=== PATIENT | female | born 1945 | race Two or more races ===

== ENCOUNTER 2017-03-27 19:03 | Inpatient (IN) | payer BC ==
[2017-03-27 19:26] VITALS: BMI 27.4
[2017-03-27] MEDS ORDERED: SODIUM CHLORIDE 1,000 ML IV STA (20:07)
--- NOTE | 2017-03-27 20:10 | PDOC ---
Attending Attestation - Resident Resident Name: Cecilio Gaspar - ED Attending Attestation I have performed the following: I have examined & evaluated the patient, The case was reviewed & discussed with the resident, I agree w/resident's findings & plan, Exceptions are as noted - Physicial Exam PE: 03/27/17 20:38 Physical Exam General Appearance: Yes: Appropriately Dressed. No: Apparent Distress, Intoxicated HEENT: positive: EOMI, DAVIDSON, Normal ENT Inspection, Normal Voice, TMs Normal, Pharynx Normal. negative: Pale Conjunctivae, Photophobia, Scleral Icterus (R), Scleral Icterus (L) Neck: positive: Trachea midline, Normal Thyroid, Supple. negative: Tender, Rigid, Carotid bruit, Stridor, Lymphadenopathy (R), Lymphadenopathy (L), Thyromegaly Respiratory/Chest: positive: Lungs Clear, Normal Breath Sounds. negative: Chest Tender, Respiratory Distress, Accessory Muscle Use, Labored Respiration, RES, Crackles, Rales, Rhonchi, Stridor, Wheezing, Dullness Cardiovascular: positive: Regular Rhythm, Regular Rate, S1, S2. negative: Edema , JVD, Murmur, Bradycardia, Tachycardia Vascular Pulses: Dorsalis-Pedis (R): 2+, Doralis-Pedis (L): 2+ Gastrointestinal/Abdominal: positive: Normal Bowel Sounds, Flat, Soft. negative : Tender, Organomegaly, Pulsatile Mass, Increased Bowel Sounds, Decreased BS, Distended, Guarding, Rebound, Hernia, Hepatomegaly, Spleenomegaly Lymphatic: negative: Adenopathy, Tenderness Musculoskeletal: positive: Normal Inspection. negative: CVA Tenderness, Decreased Range of Motion Extremity: positive: Normal Capillary Refill, Normal Inspection, Normal Range of Motion, Pelvis Stable. negative: Tender, Pedal Edema, Swelling, Erythema Integumentary: positive: Normal Color, Dry, Warm. negative: Cyanotic, Erythema , Jaundice, Rash Neurologic: positive: business account leader II-XII NML intact, slight slurred speech, confused Alert, Normal Mood/Affect, Motor Strength 5/5. negative: EOM Palsy, Facial Droop, Sensory Deficit - Medical Decision Making 03/27/17 23:27 Pt to be admitted to [facility] fro AMS, UTI <SinCharles cordero - Last Filed: 03/27/17 23:27> - HPI HPI: 03/27/17 23:30 The patient is a 72 year old female with a significant PMH of past TIA, diabetes , HTN, hyperlipidemia, and depression who presents to the emergency department with altered mental status beginning approximately 1 week ago and for evaluation of elevated blood sugar. As per , the patient has been increasingly confused with associated difficulty speaking, being very repetitive with her sentences. The patients reports the patient took Ambien earlier today and has been drinking recently. The patient denies headache , chest pain, shortness of breath, or weakness. Allergies: NKA <Yan Mclain - Last Filed: 03/27/17 23:38> Discharge Disposition - Discharge Dispostion Admit: Yes <Charles Álvarez - Last Filed: 03/27/17 23:27> <Yan Mclain - Last Filed: 03/27/17 23:38> - Diagnosis Altered mental status, UTI (urinary tract infection) - Discharge Dispostion Condition at time of disposition: Stable
[2017-03-27 21:27] LABS: BASO % 0.6 % (0-2.0); EOS % 3.3 % (0-4.5); HEMATOCRIT 35.4 % (32.4-45.2); HEMOGLOBIN 12.2 GM/dL (10.7-15.3); LYMPH % 30.7 % (8-40); MCH 29.5 pg (25.7-33.7); MCHC 34.3 g/dl (32.0-36.0); MEAN PLT VOLUME 8.5 fl (7.5-11.1); MONO % 8.3 % (3.8-10.2); NEUT % 57.1 % (42.8-82.8); PLATELET COUNT 272 K/MM3 (134-434); RBC 4.12 M/mm3 (3.60-5.2); RDW 13.1 % (11.6-15.6); WHITE BLOOD COUNT 9.5 K/mm3 (4.0-10.0)
[2017-03-27 21:50] LABS: URINE APPEARANCE CLEAR; URINE BILIRUBIN NEGATIVE (NEGATIVE); URINE BLOOD 1+ (NEGATIVE); URINE COLOR LTYELLOW; URINE GLUCOSE (UA) 3+ (NEGATIVE); URINE KETONE NEGATIVE (NEGATIVE); URINE LEUK ESTERASE 3+ (NEGATIVE); URINE NITRITE POSITIVE (NEGATIVE); URINE PROTEIN NEGATIVE (NEGATIVE); URINE UROBILINOGEN NEGATIVE mg/dL (0.2-1.0)
[2017-03-27 21:53] LABS: EPI CELLS RARE /HPF (FEW); URINE MUCUS RARE
[2017-03-27 22:00] LABS: COCAINE, UR NEGATIVE ng/ml (CUTOFF=300); METHADONE, UR NEGATIVE ng/ml (CUTOFF=300); OPIATES, URI NEGATIVE ng/ml (CUTOFF=300); PHENCYCLIDINE,URINE NEGATIVE ng/ml (CUTOFF=25); URINE AMPHETAMINES NEGATIVE ng/ml (CUTOFF=500); URINE BARBITURATES NEGATIVE ng/ml (CUTOFF=200); URINE BENZODIAZEPINES NEGATIVE ng/ml (CUTOFF=200)
[2017-03-27 22:01] LABS: ANION GAP 8 (8-16); BLOOD UREA NITROGEN 23 mg/dL (7-18); CALCIUM 7.9 mg/dL (8.5-10.1); CHLORIDE 105 mmol/L (98-107); CO2 28 mmol/L (21-32); CREATININE 1.2 mg/dL (0.55-1.02); GLUCOSE,RANDOM 202 mg/dL (74-106); POTASSIUM 3.1 mmol/L (3.5-5.1); SGOT/AST 58 U/L (15-37); SGPT/ALT 76 U/L (12-78); SODIUM 141 mmol/L (136-145)
[2017-03-27 22:02] LABS: ALCOHOL < 5.0 mg/dl (0-5)
[2017-03-27 22:03] LABS: ALK PHOS 202 U/L (45-117); BILIRUBIN,TOTAL 0.5 mg/dL (0.2-1.0); TOT PROT 6.4 g/dl (6.4-8.2)
[2017-03-27 22:07] LABS: ACETAMINOPHEN < 2.000 ug/ml (10.0-30.0); SALICYLATE < 4.0 mg/dl (0.0-30.0)
[2017-03-27] MEDS ORDERED: CEFTRIAXONE 1 GM/50 ML BAG ONE (23:24)
--- NOTE | 2017-03-27 23:42 | PDOC ---
History of Present Illness - General Chief Complaint: Altered Mental Status Stated Complaint: ALTERED MENTAL STATUS Time Seen by Provider: 03/27/17 19:59 History Source: Family - History of Present Illness Initial Comments: 03/27/17 23:37 72F with pmh of TIA, DM2, HTN, presenting with altered mental status, hyperglycemia in the 350's and suicidal ideation brought with by ems. Given 500cc ns. and family think she may have taken some Ambien, unknown amounts. . 03/27/17 23:40 Past History - Past Medical History Allergies/Adverse Reactions: Allergies Allergy/AdvReac Type Severity Reaction Status Date / Time No Known Allergies Allergy Verified 03/27/17 19:12 Home Medications: Ambulatory Orders Zolpidem Tartrate [Ambien] 10 mg PO BID 03/27/17 COPD: No Diabetes: Yes HTN: Yes Hypercholesterolemia: Yes Psychiatric Problems: Yes (depression and hallucinations, imsomnia) - Suicide/Smoking/Psychosocial Hx Smoking History: Never smoked Have you smoked in the past 12 months: No Information on smoking cessation initiated: No Hx Alcohol Use: No Drug/Substance Use Hx: No Substance Use Type: None Review of Systems - Review of Systems Able to Perform ROS?: No (patient altered. ) *Physical Exam - Vital Signs Last Vital Signs Temp Pulse Resp BP Pulse Ox 98.8 F 70 18 119/60 100 03/27/17 19:13 03/27/17 19:13 03/27/17 19:13 03/27/17 19:13 03/27/17 19:13 - Physical Exam General Appearance: Yes: Disheveled, Moderate Distress HEENT: positive: EOMI, DAVIDSON, Normal ENT Inspection Respiratory/Chest: positive: Lungs Clear, Normal Breath Sounds. negative: Chest Tender, Respiratory Distress Cardiovascular: positive: Regular Rhythm, Regular Rate, S1, S2 Gastrointestinal/Abdominal: positive: Normal Bowel Sounds, Tender (mildly grimacing on palpation), Soft Extremity: positive: Normal Capillary Refill Neurologic: positive: Responsive, Confused, Depressed Affect. negative: Fully Oriented ED Treatment Course - LABORATORY CBC & Chemistry Diagram: 03/27/17 20:59 03/27/17 20:59 - ADDITIONAL ORDERS Additional order review: Laboratory Results 03/27/17 03/27/17 03/27/17 21:39 21:39 20:59 Sodium Potassium Chloride Carbon Dioxide Anion Gap BUN Creatinine Creat Clearance w eGFR Random Glucose Calcium Total Bilirubin AST ALT Alkaline Phosphatase Total Protein Albumin Urine Color Ltyellow Urine Appearance Clear Urine pH 5.0 Ur Specific [place] 1.018 Urine Protein Negative Urine Glucose (UA) 3+ H Urine Ketones Negative Urine Blood 1+ H Urine Nitrite Positive Urine Bilirubin Negative Urine Urobilinogen Negative Ur Leukocyte Esterase 3+ H Urine WBC (Auto) 22 Urine RBC (Auto) 1 Ur Epithelial Cells Rare Urine Mucus Rare Salicylates < 4.0 Opiates Screen Negative Methadone Screen Negative Acetaminophen < 2.000 L Barbiturate Screen Negative Phencyclidine Screen Negative Ur Amphetamines Screen Negative MDMA (Ecstasy) Screen Negative Benzodiazepines Screen Negative Cocaine Screen Negative U Marijuana (THC) Screen Negative Alcohol, Quantitative < 5.0 03/27/17 20:59 Sodium 141 Potassium 3.1 L Chloride 105 Carbon Dioxide 28 Anion Gap 8 BUN 23 H Creatinine 1.2 H Creat Clearance w eGFR 44.41 Random Glucose 202 H Calcium 7.9 L Total Bilirubin 0.5 AST 58 H ALT 76 Alkaline Phosphatase 202 H Total Protein 6.4 Albumin 3.0 L Urine Color Urine Appearance Urine pH Ur Specific [place] Urine Protein Urine Glucose (UA) Urine Ketones Urine Blood Urine Nitrite Urine Bilirubin Urine Urobilinogen Ur Leukocyte Esterase Urine WBC (Auto) Urine RBC (Auto) Ur Epithelial Cells Urine Mucus Salicylates Opiates Screen Methadone Screen Acetaminophen Barbiturate Screen Phencyclidine Screen Ur Amphetamines Screen MDMA (Ecstasy) Screen Benzodiazepines Screen Cocaine Screen U Marijuana (THC) Screen Alcohol, Quantitative 03/27/17 20:59 RBC 4.12 MCV 86.0 MCHC 34.3 RDW 13.1 MPV 8.5 Neutrophils % 57.1 Lymphocytes % 30.7 Monocytes % 8.3 Eosinophils % 3.3 Basophils % 0.6 - RADIOLOGY Radiology Studies Ordered: Category Date Time Status HEAD CT WITHOUT CONTRAST [CT] Stat CT Scan 03/27/17 20:08 Completed - Medications Given in the ED: ED Medications Discontinued Medications Generic Name Dose Route Start Last Admin Trade Name Freq PRN Reason Stop Dose Admin Sodium Chloride 1,000 mls @ 1,000 mls/hr 03/27/17 20:07 03/27/17 20:28 Normal Saline - IV 03/27/17 21:06 1,000 mls/hr ASDIR STA Administration Medical Decision Making - Medical Decision Making 03/27/17 23:49 72F presenting with AMS. basic labs, metabolic vs tox vs neuro. K: 3.1 given KCL EKG normal EKG HEAD CT: negative negative tox UA positive for UTI, Given rocephin. Will admit to hospitalist. Family expressed desire to arrange for accomadation to transport patient to [facility] tomorrow *DC/Admit/Observation/Transfer Diagnosis at time of Disposition: Altered mental status, UTI (urinary tract infection) - Discharge Dispostion Condition at time of disposition: Stable - Referrals - Patient Instructions - Post Discharge Activity
[2017-03-27] MEDS ORDERED: POTASSIUM CHLORIDE ORAL LIQUID 20 MEQ/15 ML PO ONE (23:45)
[2017-03-28] MEDS ORDERED: POTASSIUM CHLORIDE TABS 20 MEQ TABLET.ER (FP) PO ONE (00:41)
--- NOTE | 2017-03-28 02:26 | PN ---
Teaching Attending Note Name of Resident: Jonathon Thompson ATTENDING PHYSICIAN STATEMENT I saw and evaluated the patient. I reviewed the resident's note and discussed the case with the resident. I agree with the resident's findings and plan as documented. HPI is per daughter at bedside SUBJECTIVE: 72yo F wtih PMH DM, HTN and CVA with residual slurred speech presented to ER after suicide attempt. took unknown amount of ambien in attempts to end her life. pt has been progressively depressed over the past month after catching her cheating on her. also her dog 2 weeks ago. pt has been making repetetive threats that she will kill herself. but today was the first time she actually acted on it. she has also made several statements how her life is meaningless and everyone would be happy without her present. also has been phsyically abusive to their pet bird. daughter also states shes been having visual hallucinations seeing her grandfather who 10 years ago. pt is only complaining of urinary urgency. denies CP, SOB, fever, chills, N/V/C/D OBJECTIVE: Last Vital Signs Temp Pulse Resp BP Pulse Ox 98.8 F 70 18 119/60 100 03/27/17 19:13 03/27/17 19:13 03/27/17 19:13 03/27/17 19:13 03/27/17 19:13 General tearful during exam. A&O x2 (self and location), dysarthric speech CV S1 S2 RRR no murmur/rub/gallop Lungs CTA B/L no wheezing/rales/rhonchi Abdomen soft +suprapubic tenderness no distention Extremtieis no pedal edema ASSESSMENT AND PLAN: 72yo F wtih PMH DM, HTN and CVA with residual slurred speech presented to ER after suicide attempt and AMS 1. Acute metabolic encephalopathy- medicine admission. likely multifactorial from ambien overdose and hyperglycemia. started on ceftriaxone in the ER. cont IVF. f/u Cx 2. Suicide attempt- intentional overdose on ambien. likely due to multiple family stressors. will need to re-assess when she is more alert and medication is not in her system. will place on 1:1 observation. psych consult. advised daughter that should not visit while she is hospitalized as may trigger response until evaluated by psych. no real silverware or cords in the room. Utox negative 3. hypokalemia- KCl po 4. MICHEAL- due to dehydration. IVF 5. HTN- will need to verify home medications. currently normotensives 6. CVA- residual dysarthria. confirm home medications 7. DVT ppx- hep sq 8. spoke with daughter, present at bedside in detail regarding plan. agreeable to being treated here at [facility]. explained she will need to be assessed by psych if she is considered threat to herself will need to be involuntary committed to psychiatric unit. she is agreeable to plan. verbalized understanding
--- NOTE | 2017-03-28 03:02 | HP ---
CHIEF COMPLAINT: suicidal PCP: unknown, possibly "Elieser Ashton" in [place] HISTORY OF PRESENT ILLNESS: 72 y/ F w/PMH of CVA, DM, HTN, HLD, depression presents to the ER after suicide attempt. History obtained from family at bedside (daughter, son in law, ) . Pt with slurred speech but according to family this is her usual speech s/p last CVA> Pt took an unknown amount of ambien today in attempted suicide. Pt has been depressed due to finding out her was cheating on her approx 1 month ago and since then has had worsening depression. She has been talking about killing herself since then but this is the first time she acted on it. She also has been having violent outburst against pet bird and during this time. Pt has been having auditory and visual hallucinations and has been seeing her father and according to pt's daughter the pt has been saying that she will be "joining him". Also according to daughter pt has been suffering from insomnia that was not improved with ambien. Pt endorses L sided BROWN located behind L ear. Pt also has had approx 30 pound weight loss over the past month due to decrease in appetite. Family says she does not drink alcohol or do drugs. Pt denies CP, SOB, N/V/F/C, abd pain, diarrhea, constipation, extremity swelling. ER course was notable for: (1) Ceftriaxone, NS, KCl (2) Head CT, CXR (3) Recent Travel: denies PAST MEDICAL HISTORY:TIA x2, DM, HTN, HLD, depression PAST SURGICAL HISTORY: cholecystectomy, breast reduction Social History: Smoking: never Alcohol: denies Drugs: denies Family History: Mother:() alzheimers. Father: () DM, Prostate ca Allergies No Known Allergies Allergy (Verified 03/27/17 19:12) HOME MEDICATIONS: Home Medications Medication Instructions Recorded Zolpidem Tartrate [Ambien] 10 mg PO BID 03/27/17 REVIEW OF SYSTEMS CONSTITUTIONAL: +weight loss, loss of appetite. Absent: fever, chills CARDIOVASCULAR: Absent: chest pain, peripheral edema RESPIRATORY: Absent: cough, shortness of breath GASTROINTESTINAL: Absent: abdominal pain, nausea, vomiting, diarrhea, constipation GENITOURINARY: Absent: dysuria NEUROLOGIC: +BROWN, mental status change PSYCHIATRIC: +suicidal ideation, A/V hallucinations PHYSICAL EXAMINATION Vital Signs - 24 hr 03/27/17 03/28/17 19:13 02:29 Temperature 98.8 F 98.6 F Pulse Rate 70 Pulse Rate [ 76 Radial] Respiratory 18 18 Rate Blood Pressure 119/60 Blood Pressure 130/72 [Arm] O2 Sat by Pulse 100 96 Oximetry (%) GENERAL: Lethargic, in no acute respiratory distress. AAOx3 (person, place, time by president but cannot recall month or year) HEAD: Normal with no signs of trauma. EYES: Pupils equal, round and reactive to light EARS, NOSE, THROAT: Ears normal, nares patent LUNGS: Breath sounds equal, clear to auscultation bilaterally. No wheezes, and no crackles. No accessory muscle use. HEART: Regular rate and rhythm, normal S1 and S2 without murmur ABDOMEN: Soft, nontender, not distended, normoactive bowel sounds, no guarding, no rebound, no masses. UPPER EXTREMITIES: 2+ pulses, warm, well-perfused. No peripheral edema. LOWER EXTREMITIES: 2+ pulses, warm, well-perfused. No peripheral edema. NEUROLOGICAL: Lethargic. B/L UE and LE and facial sensation to light touch intact. PSYCHIATRIC: Lethargic SKIN: Warm, dry Laboratory Results - last 24 hr 03/27/17 03/27/17 03/27/17 20:59 20:59 20:59 WBC 9.5 RBC 4.12 Hgb 12.2 Hct 35.4 MCV 86.0 MCH 29.5 MCHC 34.3 RDW 13.1 Plt Count 272 MPV 8.5 Neutrophils % 57.1 Lymphocytes % 30.7 Monocytes % 8.3 Eosinophils % 3.3 Basophils % 0.6 Sodium 141 Potassium 3.1 L Chloride 105 Carbon Dioxide 28 Anion Gap 8 BUN 23 H Creatinine 1.2 H Creat Clearance w eGFR 44.41 Random Glucose 202 H Calcium 7.9 L Total Bilirubin 0.5 AST 58 H ALT 76 Alkaline Phosphatase 202 H Total Protein 6.4 Albumin 3.0 L Urine Color Urine Appearance Urine pH Ur Specific [place] Urine Protein Urine Glucose (UA) Urine Ketones Urine Blood Urine Nitrite Urine Bilirubin Urine Urobilinogen Ur Leukocyte Esterase Urine WBC (Auto) Urine RBC (Auto) Ur Epithelial Cells Urine Mucus Salicylates < 4.0 Opiates Screen Methadone Screen Acetaminophen < 2.000 L Barbiturate Screen Phencyclidine Screen Ur Amphetamines Screen MDMA (Ecstasy) Screen Benzodiazepines Screen Cocaine Screen U Marijuana (THC) Screen Alcohol, Quantitative < 5.0 03/27/17 03/27/17 21:39 21:39 WBC RBC Hgb Hct MCV MCH MCHC RDW Plt Count MPV Neutrophils % Lymphocytes % Monocytes % Eosinophils % Basophils % Sodium Potassium Chloride Carbon Dioxide Anion Gap BUN Creatinine Creat Clearance w eGFR Random Glucose Calcium Total Bilirubin AST ALT Alkaline Phosphatase Total Protein Albumin Urine Color Ltyellow Urine Appearance Clear Urine pH 5.0 Ur Specific [place] 1.018 Urine Protein Negative Urine Glucose (UA) 3+ H Urine Ketones Negative Urine Blood 1+ H Urine Nitrite Positive Urine Bilirubin Negative Urine Urobilinogen Negative Ur Leukocyte Esterase 3+ H Urine WBC (Auto) 22 Urine RBC (Auto) 1 Ur Epithelial Cells Rare Urine Mucus Rare Salicylates Opiates Screen Negative Methadone Screen Negative Acetaminophen Barbiturate Screen Negative Phencyclidine Screen Negative Ur Amphetamines Screen Negative MDMA (Ecstasy) Screen Negative Benzodiazepines Screen Negative Cocaine Screen Negative U Marijuana (THC) Screen Negative Alcohol, Quantitative Imaging: Head CT: IMPRESSION: No CT evidence of acute intracranial pathology. Chronic left parietal cortical infarct. CXR: NAP noted ASSESSMENT/PLAN: 72 y/ F w/PMH of TIA x2, DM, HTN, HLD, depression presents to the ER after suicide attempt. Also found to have UTI. -AMS secondary to drug overdose w/superimposed UTI and suicidal ideation -1:1 observation, no silverware -psych consult -c/w ceftriaxone -f/u BCx, UCx -Head CT negative, utox negative -MICHEAL secondary to decreased PO intake/dehydration -NS @ 125 ml/hr -Monitor BUN/Cr -may be secondary to drug overdose, continue to monitor -DM -ISS, BGMs ACHS -DVT ppx -Heparin 5000 units sq q8h -FEN -NS @ 125 ml/hr -Hypokalemia, repleted in ER, monitor lytes -Diabetic diet -Dispo: Admit to m/s Visit type - Emergency Visit Emergency Visit: Yes ED Registration Date: 03/27/17 Care time: The patient presented to the Emergency Department on the above date and was hospitalized for further evaluation of their emergent condition. - New Patient This patient is new to me today: Yes Date on this admission: 03/28/17 - Critical Care Critical Care patient: No
[2017-03-28] MEDS ORDERED: SODIUM CHLORIDE 1,000 ML IV SCH (03:15)
[2017-03-28] MEDS: HEPARIN NA (PORCINE) 5,000 UNITS/ML 1ML VIAL SQ SCH ×2 (06:17→15:35)
[2017-03-28] MEDS ORDERED: HEPARIN NA (PORCINE) 5,000 UNITS/ML 1ML VIAL ONE (06:18)
[2017-03-28] MEDS ORDERED: INSULIN SLIDING SCALE (NOVOLOG) 1 VIAL SQ SCH (07:00)
[2017-03-28 08:46] LABS: INR 1.04 (0.82-1.09); PROTHROMBIN TIME (PATIENT) 11.7 SEC (9.98-11.88)
[2017-03-28 08:48] LABS: ACTIVATED PTT 32.3 SECONDS (26.9-34.4)
[2017-03-28 08:53] LABS: BASO % 0.7 % (0-2.0); EOS % 3.9 % (0-4.5); HEMATOCRIT 35.8 % (32.4-45.2); HEMOGLOBIN 11.9 GM/dL (10.7-15.3); LYMPH % 33.7 % (8-40); MCH 28.5 pg (25.7-33.7); MCHC 33.2 g/dl (32.0-36.0); MEAN PLT VOLUME 8.6 fl (7.5-11.1); MONO % 7.9 % (3.8-10.2); NEUT % 53.8 % (42.8-82.8); PLATELET COUNT 262 K/MM3 (134-434); RBC 4.16 M/mm3 (3.60-5.2); RDW 13.2 % (11.6-15.6); WHITE BLOOD COUNT 9.1 K/mm3 (4.0-10.0)
[2017-03-28 09:04] LABS: CALCIUM 8.6 mg/dL (8.5-10.1); CHLORIDE 106 mmol/L (98-107); POTASSIUM 3.6 mmol/L (3.5-5.1); SODIUM 142 mmol/L (136-145)
--- NOTE | 2017-03-28 09:09 | EKG ---
Test Reason : Blood Pressure : / mmHG Vent. Rate : 084 BPM Atrial Rate : 084 BPM P-R Int : 148 ms QRS Dur : 070 ms QT Int : 378 ms P-R-T Axes : 072 075 027 degrees QTc Int : 446 ms NORMAL SINUS RHYTHM NONSPECIFIC T WAVE ABNORMALITY ABNORMAL ECG NO PREVIOUS ECGS AVAILABLE Confirmed by SURINDER THORNTON MD ([id number]) on 03/28/2017 9:09:32 AM Referred By: Confirmed By:SURINDER THORNTON MD
[2017-03-28 09:10] LABS: ALBUMIN 3.2 g/dl (3.4-5.0); ALK PHOS 208 U/L (45-117); ANION GAP 11 (8-16); BILIRUBIN,TOTAL 0.7 mg/dL (0.2-1.0); BLOOD UREA NITROGEN 16 mg/dL (7-18); CO2 25 mmol/L (21-32); GLUCOSE,RANDOM 112 mg/dL (74-106); MAGNESIUM 2.1 mg/dL (1.8-2.4); PHOSPHOROUS 2.9 mg/dL (2.5-4.9); SGOT/AST 67 U/L (15-37); SGPT/ALT 81 U/L (12-78); TOT PROT 6.7 g/dl (6.4-8.2)
[2017-03-28] MEDS ORDERED: CEFTRIAXONE 1 G/50 ML PREMIX 50 ML IVPB SCH (10:00)
[2017-03-28 12:37] VITALS: BP 134/77; PULSE 77; TEMP 98.3
--- NOTE | 2017-03-28 13:49 | CON.PSY ---
Psychiatry Consult Chief Complaint: 72 year old female seen for psych eval for ? Ambien overdose. patient admitted to ER with AMS. patient rep[orts that she jhas only taken 2 ambiens because she has troubl;e sleeping and been upset with Hb, Spoke to patients Daughter as well. Symptoms: reports: Anxiety - Previous Psychiatric Treatment Outpatient: Less than 6 mos ago Inpatient: None - Previous Substance Abuse Treatment Outpatient: None Inpatient: None - Reason for Previous Treatment Reason for Previous Treatment: Major Depression - Current Medications Current Medications: Active Medications Heparin Sodium (Porcine) (Heparin -) 5,000 unit SQ TID [facility] Last Admin: 03/28/17 06:17 Dose: 5,000 unit Sodium Chloride (Normal Saline -) 1,000 mls @ 125 mls/hr IV ASDIR [facility] Last Admin: 03/28/17 05:15 Dose: 125 mls/hr CEFTRIAXONE 1 G/50 ML PREMIX (Ceftriaxone 1 Gm-D5w Bag) 50 mls @ 100 mls/hr IVPB DAILY [facility] Last Admin: 03/28/17 12:50 Dose: 100 mls/hr Insulin Aspart (Novolog Vial Sliding Scale -) 1 vial SQ ACHS [facility] PRN Reason: Protocol - Allergies Allergies: Allergies Allergy/AdvReac Type Severity Reaction Status Date / Time No Known Allergies Allergy Verified 03/27/17 19:12 - Current Living Status Usual Living Arrangement: With Spouse - Current Mental Status Evaluation Appearance: Well Groomed Attitude: Cooperative - Affect Affect: Full Range Appropriateness: Appropriate to Content - Mood Mood: Euthymic - Speech/Language Expressive: Coherent - Psychomotor Activity Psychomotor Activity: Normal - Thought Process Thought Process: Intact - Thought Content Hallucinations: Absent Delusions: Absent - Self Perception Self Perception: No Impairment - Cognition Attention: Alert Orientation: Time Memory, Short Term: 2/3 Memory, Remote with Promptin/3 - Concentration Serial Sevens Intact: No Simple Calculations Intact: No - Abstraction Proverb Interpretation: Intact Judgement: Minimally Impaired - Insight Insight: Intact - Impulse Control Impulse Control: Minimally Impaired - Suicidal Ideation Suicidal Ideation: No - Homicidal Ideation Homicidal Ideation: No Assessment/Plan 1) Patients mental status has cleared, no evidence4 of any AMS, 2) patient is not suicidal at this time, 3) Patient can be discharged home in care of Family. 4) Continue with Cymbalta 30 pop od.
--- NOTE | 2017-03-28 13:55 | PN ---
Progress Note (short form) - Note Progress Note: D/C Delores note,
--- NOTE | 2017-03-28 15:29 | DS ---
Physical Exam: SUBJECTIVE: Patient seen and examined. She denies suicidal ideations, daughter and at bedside, she wants to go home OBJECTIVE: Vital Signs Period Temp Pulse Resp BP Sys/Moore Pulse Ox Last 24 Hr 98.3 F-98.8 F 70-77 18-18 119-134/60-77 96-100 PE Neuro: alert, awake, cn 2-12 intact Pulm: CTAB CV: s1 s2 rrr no mrg Abd: s nt nd + bs Ext: warm, no le edema Laboratory Results - last 24 hr 03/27/17 03/27/17 03/28/17 21:39 21:39 08:22 WBC 9.1 RBC 4.16 Hgb 11.9 Hct 35.8 MCV 86.0 MCH 28.5 MCHC 33.2 RDW 13.2 Plt Count 262 MPV 8.6 Neutrophils % 53.8 Lymphocytes % 33.7 Monocytes % 7.9 Eosinophils % 3.9 Basophils % 0.7 PT with INR INR PTT (Actin FS) Sodium Potassium Chloride Carbon Dioxide Anion Gap BUN Creatinine Creat Clearance w eGFR Random Glucose Calcium Phosphorus Magnesium Total Bilirubin AST ALT Alkaline Phosphatase Total Protein Albumin Urine Color Ltyellow Urine Appearance Clear Urine pH 5.0 Ur Specific [place] 1.018 Urine Protein Negative Urine Glucose (UA) 3+ H Urine Ketones Negative Urine Blood 1+ H Urine Nitrite Positive Urine Bilirubin Negative Urine Urobilinogen Negative Ur Leukocyte Esterase 3+ H Urine WBC (Auto) 22 Urine RBC (Auto) 1 Ur Epithelial Cells Rare Urine Mucus Rare Salicylates Opiates Screen Negative Methadone Screen Negative Acetaminophen Barbiturate Screen Negative Phencyclidine Screen Negative Ur Amphetamines Screen Negative MDMA (Ecstasy) Screen Negative Benzodiazepines Screen Negative Cocaine Screen Negative U Marijuana (THC) Screen Negative Alcohol, Quantitative 03/28/17 03/28/17 03/28/17 08:22 08:22 12:55 WBC RBC Hgb Hct MCV MCH MCHC RDW Plt Count MPV Neutrophils % Lymphocytes % Monocytes % Eosinophils % Basophils % PT with INR 11.70 INR 1.04 PTT (Actin FS) 32.3 Sodium 142 Potassium 3.6 Chloride 106 Carbon Dioxide 25 Anion Gap 11 BUN 16 Creatinine 1.0 Creat Clearance w eGFR 54.81 Random Glucose 112 H 260 H Calcium 8.6 Phosphorus 2.9 Magnesium 2.1 Total Bilirubin 0.7 D AST 67 H ALT 81 H Alkaline Phosphatase 208 H Total Protein 6.7 Albumin 3.2 L Urine Color Urine Appearance Urine pH Ur Specific [place] Urine Protein Urine Glucose (UA) Urine Ketones Urine Blood Urine Nitrite Urine Bilirubin Urine Urobilinogen Ur Leukocyte Esterase Urine WBC (Auto) Urine RBC (Auto) Ur Epithelial Cells Urine Mucus Salicylates Opiates Screen Methadone Screen Acetaminophen Barbiturate Screen Phencyclidine Screen Ur Amphetamines Screen MDMA (Ecstasy) Screen Benzodiazepines Screen Cocaine Screen U Marijuana (THC) Screen Alcohol, Quantitative HOSPITAL COURSE: Date of Admission:03/27/17 Date of Discharge: 03/28/17 Minutes to complete discharge: 38 Discharge Summary Reason For Visit: UTI/AMS Current Active Problems Altered mental status (Acute) UTI (urinary tract infection) (Acute) Hospital Course: Initial Hospital Course: Briefly, this 72 year old female w/PMH of CVA, DM, HTN, HLD, depression presented to the ER after suicide attempt. Per family at bedside (daughter, son in law, ). Pt with slurred speech but according to family this is her usual speech s/p last CVA> Pt took an unknown amount of ambien. Pt has been depressed due to finding out her was cheating on her ~ 1 month ago and since has been depressed. She talked about killing herself since, but this is the first time she acted on it. Pt has been having auditory and visual hallucinations and has been seeing her father and according to pt's daughter the pt has been saying that she will be "joining him". Also daughter reported pt suffering from insomnia; not improved with ambien. Pt also has had approx 30 pound weight loss over the past month due to decrease in appetite. Patient was seen by psych, per eval mental status cleared no evidence of AMS nor suicidal ideations 1:1 discontinued Home with family Stop ambien Treat UTI with levaquin 500mg x5 days PCP follow up as outpt Discussed above with daughter and at bedside tila pierce [phone] Condition: Stable - Instructions Diet, Activity, Other Instructions: Please return to the ED for any new, persistent, or worsening symptoms. Follow up with your PCP in 1 week Take antibiotics as directed and until completed Disposition: HOME - Home Medications Comprehensive Discharge Medication List: Ambulatory Orders levoFLOXacin [Levaquin -] 500 mg PO DAILY #5 tablet 03/28/17 This patient is new to me today: Yes Date on this admission: 03/28/17 Emergency Visit: Yes ED Registration Date: 03/27/17 Care time: The patient presented to the Emergency Department on the above date and was hospitalized for further evaluation of their emergent condition. Critical Care patient: No - Discharge Referral Referred to [facility] Med P.C.: No
[2017-03-28] MEDS ORDERED: INSULIN (NOVOLOG) ASPART 100 UNITS/ML 10ML VIAL ONE ×2 (15:36→15:39)
== END 2017-03-28 18:00 | disposition home or self-care (01) | DRG 917 ==
LOC: JER 19:03 → JERBED 23:28 → UNDOADMIN 23:54 → JERBED 23:54
PROVIDERS: ADMIT Internal Medicine; ATTEND Nurse Practitioner Acute Care
DX: T42.6X2A Poisoning by other antiepileptic and sedative-hypnotic drugs, intentional self-harm, initial encounter (principal); G93.41 Metabolic encephalopathy; N39.0 Urinary tract infection, site not specified; N17.9 Acute kidney failure, unspecified; Y92.89 Other specified places as the place of occurrence of the external cause; R41.82 Altered mental status, unspecified; I10 Essential (primary) hypertension; E78.5 Hyperlipidemia, unspecified; Z86.73 Personal history of transient ischemic attack (TIA), and cerebral infarction without residual deficits; E87.6 Hypokalemia; E86.0 Dehydration
CPT/HCPCS: 36415; 70450-TC; 71045-TC-FY; 80053; 80307; 81003; 81015; 82947; 83735; 84100; 85025; 85610; 85730; 87040; 93005; 93010; 99285-25; J1644

== ENCOUNTER 2018-10-21 09:54 | Inpatient (IN) | payer BC ==
[2018-10-21 11:07] LABS: BASO % 0.5 % (0-2.0); HEMATOCRIT 35.5 % (32.4-45.2); LYMPH % 11.3 % (8-40); MCH 29.3 pg (25.7-33.7); MCHC 33.8 g/dl (32.0-36.0); MEAN CELL VOLUME 86.9 fl (80-96); MEAN PLT VOLUME 8.2 fl (7.5-11.1); MONO % 4.8 % (3.8-10.2); NEUT % 82.4 % (42.8-82.8); PLATELET COUNT 230 K/MM3 (134-434); RBC 4.09 M/mm3 (3.60-5.2); RDW 12.8 % (11.6-15.6); WHITE BLOOD COUNT 13.4 K/mm3 (4.0-10.0)
--- NOTE | 2018-10-21 11:09 | EKG ---
Test Reason : Blood Pressure : / mmHG Vent. Rate : 092 BPM Atrial Rate : 092 BPM P-R Int : 176 ms QRS Dur : 076 ms QT Int : 320 ms P-R-T Axes : 080 062 056 degrees QTc Int : 395 ms NORMAL SINUS RHYTHM NONSPECIFIC T WAVE ABNORMALITY ABNORMAL ECG WHEN COMPARED WITH ECG OF 27-MAR-2017 19:26, QT HAS SHORTENED Confirmed by YASIR DESIR, KSENIA ([id number]) on 10/21/2018 11:09:25 AM Referred By: Confirmed By:KSENIA COOLEY MD
[2018-10-21 11:38] LABS: ALBUMIN 3.9 g/dl (3.4-5.0); BILIRUBIN,TOTAL 0.6 mg/dL (0.2-1); BLOOD UREA NITROGEN 18.2 mg/dL (7-18); CALCIUM 9.5 mg/dL (8.5-10.1); CREATININE 1.1 mg/dL (0.55-1.3); POTASSIUM 3.9 mmol/L (3.5-5.1); TOT PROT 7.5 g/dl (6.4-8.2)
[2018-10-21] MEDS ORDERED: ACETAMINOPHEN 1000 MG/100 ML VIAL (NON FORMULARY) IVPB ONE (12:22)
[2018-10-21] MEDS ORDERED: ONDANSETRON 4 MG/2 ML VIAL IVPUSH ONE (12:22)
[2018-10-21 12:31] LABS: PROTHROMBIN TIME (PATIENT) 11.3 SEC (9.7-13.0)
[2018-10-21 12:32] LABS: INR 0.96 (0.83-1.09)
[2018-10-21] MEDS ORDERED: ACETAMINOPHEN INJECTION 100 ML IVPB ONE (12:52)
[2018-10-21] MEDS ORDERED: ONDANSETRON 4 MG/2 ML VIAL ONE (12:52)
--- NOTE | 2018-10-21 13:51 | PDOC ---
Documentation entered by Lenny Navarro SCRIBE, acting as scribe for Tameka Bradford MD. Tameka Bradford MD: This documentation has been prepared by the Ramon montana Daniel, SCRIBE, under my direction and personally reviewed by me in its entirety. I confirm that the documentation accurately reflects all work, treatment, procedures, and medical decision making performed by me. History of Present Illness - General Chief Complaint: Injury Stated Complaint: FALL' Time Seen by Provider: 10/21/18 10:11 History Source: Patient, Spouse Exam Limitations: No Limitations - History of Present Illness Initial Comments: 10/21/18 10:57 The patient is a 73 year old female with a past medical history of TIA, diabetes , HTN, and HLD here today for evaluation of head hematoma s/p 2 falls from bed. The patients reports that the patient fell around 3:30 AM this morning and he helped her back into bed. He states that he found her on the floor again a few hours later and helped her back into bed. He reports that the bed is approximately 2 feet off the ground and that the bedroom floor is tile. Patient vomited while in the ER. Allergies: NKA PCP: Dr. Elieser Ashton Past History - Past Medical History Allergies/Adverse Reactions: Allergies Allergy/AdvReac Type Severity Reaction Status Date / Time No Known Allergies Allergy Verified 03/27/17 19:12 Home Medications: Ambulatory Orders levoFLOXacin [Levaquin -] 500 mg PO DAILY #5 tablet 03/28/17 Amlodipine Besylate 10 mg PO DAILY 10/22/18 Atorvastatin Calcium 40 mg PO DAILY 10/22/18 Carvedilol 25 mg PO DAILY 10/22/18 Escitalopram Oxalate [Lexapro -] 10 mg PO DAILY 10/22/18 Metformin HCl [Glucophage] 1,000 mg PO BID 10/22/18 Mirtazapine 15 mg PO DAILY 10/22/18 Sitagliptin Phosphate [Januvia] 100 mg PO DAILY 10/22/18 Valsartan/Hydrochlorothiazide [Valsartan-Hctz 160-12.5 mg Tab] 1 each PO DAILY 10/22/18 Zolpidem Tartrate [Zolpidem Tartrate ER] 12.5 mg PO HS 10/22/18 CVA: Yes COPD: No Diabetes: Yes HTN: Yes Hypercholesterolemia: Yes Psychiatric Problems: Yes (depression and hallucinations, imsomnia) - Suicide/Smoking/Psychosocial Hx Smoking History: Never smoked Have you smoked in the past 12 months: No Information on smoking cessation initiated: No Hx Alcohol Use: No Drug/Substance Use Hx: No Substance Use Type: None Review of Systems - Review of Systems Able to Perform ROS?: No (limited) *Physical Exam - Vital Signs Last Vital Signs Temp Pulse Resp BP Pulse Ox 98.3 F 92 H 18 161/91 97 10/21/18 10:02 10/21/18 10:02 10/21/18 10:02 10/21/18 10:02 10/21/18 10:02 - Physical Exam Comments: 10/21/18 10:57 GENERAL: +patient vomited while in ER. The patient is in no acute distress. HEAD: +large right frontal hematome. EYES: PERRLA, EOMI, sclera anicteric, conjunctiva clear. ENT: Ears normal, nares patent, oropharynx clear without exudates. Moist mucous membranes. NECK: Normal range of motion, supple without lymphadenopathy, JVD, or masses. LUNGS: Breath sounds equal, clear to auscultation bilaterally. No wheezes, and no crackles. HEART:Regular rate and rhythm, normal S1 and S2 without murmur, rub or gallop. ABDOMEN: Soft, nontender, normoactive bowel sounds. No guarding, no rebound. No masses palpable. EXTREMITIES: Normal range of motion, no edema. No clubbing or cyanosis. No erythema, or tenderness. NEUROLOGICAL: Cranial nerves II through XII grossly intact. Normal speech. No focal neurological deficits. MUSCULOSKELETAL: Back non-tender to palpation, no CVA tenderness SKIN: Warm, Dry, normal turgor, no rashes or lesions noted. ED Treatment Course - LABORATORY CBC & Chemistry Diagram: 10/22/18 06:15 10/22/18 06:15 - RADIOLOGY Radiology Studies Ordered: Category Date Time Status CERVICAL SPINE CT W/O CONTR [CT] Stat CT Scan 10/21/18 10:[address] W/O CONTRAST [CT] Stat CT Scan 10/21/18 10:[address] WITHOUT CONTRAST [CT] Stat CT Scan 10/21/18 10:32 Ordered CHEST X-RAY PORTABLE* [RAD] Stat Radiology 10/21/18 10:32 Ordered Medical Decision Making - Medical Decision Making 10/21/18 10:35 73 yo F presenting via EMS s/p head trauma Pt reports that she fell out of bed TWICE The first time was at approximately 3am She was put back in bed by the man at her bedside She then was found by him this morning on the floor HE was unable to pick her up and therefore called EMS The bed is approximately 2 feet off the ground Pt fell onto tile carlos Unclear if she had a loss of consciousness Pt is awake and answers questions A&O x3 Pt is vomiting Pt is slow to respond to questioning Call placed to pc maintenance technician to take this patient I am told they do not have an available table to take her I have expressed that this patient has visible head trauma and is vomiting CT will be available in 15 minutes 10/21/18 11:34 Pt was brought to CT by nurse CT still not performed 10/21/18 12:17 Laboratory Tests 10/21/18 10/21/18 10/21/18 10:45 10:45 10:45 WBC 13.4 H Hgb 12.0 Hct 35.5 Plt Count 230 Sodium 138 Potassium 3.9 Chloride 101 Carbon Dioxide 25 BUN 18.2 H Creatinine 1.1 Random Glucose 328 H Creatine Kinase 207 H Creatine Kinase Index 1.3 CK-MB (CK-2) 2.7 Troponin I < 0.02 CT performed 10/21/18 12:[address] reveals no ICH, pt haS a LARGE hematoma overlying frontal bone 10/21/18 12:49 Still awaiting official read of CT scans 10/21/18 13:41 Call placed to patient's pharmacy to confirm she is NOT On anticoagulants [facility] [address] 81 mg daily Amlodipine 10mg daily Zolpidem 12.5 Carvedilol 25 BID Naproxen 500mg BID headaches 10/21/18 14:01 EKG: NSR rate of 92 bpm, axis nml, intervals nml, no st elevation or depression , t waves upright *DC/Admit/Observation/Transfer Diagnosis at time of Disposition: Fall from bed Qualifiers: Encounter type: initial encounter Qualified Code(s): W06.XXXA - Fall from bed, initial encounter Scalp hematoma Qualifiers: Encounter type: initial encounter Qualified Code(s): S00.03XA - Contusion of scalp, initial encounter - Discharge Dispostion Condition at time of disposition: Stable Decision to Admit order: Yes - Referrals - Patient Instructions - Post Discharge Activity
--- NOTE | 2018-10-21 16:36 | HP ---
Admitting History and Physical - Primary Care Physician PCP: Laverne Cruz - Admission History of Present Illness: 73 year old female with a past medical history of TIA, diabetes, HTN, and HLD here today for evaluation of head hematoma s/p 2 falls from bed. The patients reports that the patient fell around 3:30 AM this morning and he helped her back into bed. He states that he found her on the floor again a few hours later and helped her back into bed. He reports that the bed is approximately 2 feet off the ground and that the bedroom floor is tile. Patient vomited while in the ER. - Smoking History Smoking history: Never smoked Have you smoked in the past 12 months: No - Alcohol/Substance Use Hx Alcohol Use: No Home Medications - Allergies Allergies/Adverse Reactions: Allergies Allergy/AdvReac Type Severity Reaction Status Date / Time No Known Allergies Allergy Verified 03/27/17 19:12 - Home Medications Home Medications: Ambulatory Orders levoFLOXacin [Levaquin -] 500 mg PO DAILY #5 tablet 03/28/17 Amlodipine Besylate 10 mg PO DAILY 10/22/18 Atorvastatin Calcium 40 mg PO DAILY 10/22/18 Carvedilol 25 mg PO DAILY 10/22/18 Escitalopram Oxalate [Lexapro -] 10 mg PO DAILY 10/22/18 Metformin HCl [Glucophage] 1,000 mg PO BID 10/22/18 Mirtazapine 15 mg PO DAILY 10/22/18 Sitagliptin Phosphate [Januvia] 100 mg PO DAILY 10/22/18 Valsartan/Hydrochlorothiazide [Valsartan-Hctz 160-12.5 mg Tab] 1 each PO DAILY 10/22/18 Zolpidem Tartrate [Zolpidem Tartrate ER] 12.5 mg PO HS 10/22/18 Physical Examination Vital Signs: Vital Signs Temperature 98.3 F 10/21/18 14:29 Pulse Rate 90 10/21/18 14:29 Respiratory Rate 18 10/21/18 14:29 Blood Pressure 145/78 10/21/18 14:29 O2 Sat by Pulse Oximetry (%) 96 10/21/18 14:29 HENT: Yes: Other (bruise R eye /forehead hematoma) Cardiovascular: Yes: Regular Rate and Rhythm Respiratory: Yes: CTA Bilaterally Gastrointestinal: Yes: Normal Bowel Sounds Extremities: Yes: WNL Neurological: Yes: Alert, Oriented Labs: CBC, BMP 10/21/18 10:45 10/21/18 10:45 Imaging - Results Cat Scan: Report Reviewed Problem List - Problems (1) Fall from bed Assessment/Plan: PT eval neuro consult Code(s): W06.XXXA - FALL FROM BED, INITIAL ENCOUNTER Qualifiers: Encounter type: initial encounter Qualified Code(s): W06.XXXA - Fall from bed, initial encounter (2) Scalp hematoma Code(s): S00.03XA - CONTUSION OF SCALP, INITIAL ENCOUNTER Qualifiers: Encounter type: initial encounter Qualified Code(s): S00.03XA - Contusion of scalp, initial encounter (3) UTI (urinary tract infection) Assessment/Plan: on po abx Code(s): N39.0 - URINARY TRACT INFECTION, SITE NOT SPECIFIED (4) Altered mental status Assessment/Plan: alert and oriented Code(s): R41.82 - ALTERED MENTAL STATUS, UNSPECIFIED (5) Diabetes Assessment/Plan: bgms continue home meds waiting for list Code(s): E11.9 - TYPE 2 DIABETES MELLITUS WITHOUT COMPLICATIONS Assessment/Plan Laboratory Tests 10/21/18 10/21/18 10/21/18 10:45 10:45 10:45 WBC 13.4 H RBC 4.09 Hgb 12.0 Hct 35.5 MCV 86.9 MCH 29.3 MCHC 33.8 RDW 12.8 Plt Count 230 MPV 8.2 Absolute Neuts (auto) 11.1 H Neutrophils % 82.4 D Lymphocytes % 11.3 D Monocytes % 4.8 Eosinophils % 1.0 Basophils % 0.5 Nucleated RBC % 0 PT with INR INR Sodium 138 Potassium 3.9 Chloride 101 Carbon Dioxide 25 Anion Gap 11 BUN 18.2 H Creatinine 1.1 Est GFR (CKD-EPI)AfAm 58.50 Est GFR (CKD-EPI)NonAf 50.47 Random Glucose 328 H Calcium 9.5 Total Bilirubin 0.6 AST 33 ALT 28 Alkaline Phosphatase 129 H Creatine Kinase 207 H Creatine Kinase Index 1.3 CK-MB (CK-2) 2.7 Troponin I < 0.02 Total Protein 7.5 Albumin 3.9 10/21/18 10:45 WBC RBC Hgb Hct MCV MCH MCHC RDW Plt Count MPV Absolute Neuts (auto) Neutrophils % Lymphocytes % Monocytes % Eosinophils % Basophils % Nucleated RBC % PT with INR 11.30 INR 0.96 Sodium Potassium Chloride Carbon Dioxide Anion Gap BUN Creatinine Est GFR (CKD-EPI)AfAm Est GFR (CKD-EPI)NonAf Random Glucose Calcium Total Bilirubin AST ALT Alkaline Phosphatase Creatine Kinase Creatine Kinase Index CK-MB (CK-2) Troponin I Total Protein Albumin Active Medications Generic Name Dose Route Start Last Admin Trade Name Freq PRN Reason Stop Dose Admin Amlodipine Besylate 10 mg 10/23/18 10:00 Norvasc - PO DAILY [facility] Amoxicillin/Clavulanate Potassium 1 tab 10/23/18 08:00 Augmentin - 875mg Tablet PO BID@0800,1730 [facility] Atorvastatin Calcium 40 mg 10/22/18 22:00 Lipitor - PO HS [facility] Carvedilol 25 mg 10/22/18 18:00 Coreg - PO DAILY [facility] Divalproex Sodium 250 mg 10/22/18 22:00 Depakote *Er* - PO HS [facility] Escitalopram Oxalate 10 mg 10/23/18 10:00 Lexapro - PO DAILY [facility] Hydrochlorothiazide 12.5 mg 10/23/18 10:00 Hctz - PO DAILY [facility] Metformin HCl 1,000 mg 10/23/18 07:00 Glucophage - PO BIDI [facility] Mirtazapine 15 mg 10/22/18 22:00 Remeron - PO HS [facility] Sitagliptin Phosphate 100 mg 10/23/18 07:00 Januvia - PO AM [facility] Valsartan 160 mg 10/23/18 10:00 Diovan - PO DAILY [facility]
--- NOTE | 2018-10-21 18:37 | CONSULT ---
Consult - text type - Consultation Consultation Note: NEUROLOGY CONSULT GREATLY APPRECIATED: Events reviewed and discussed with nursing staff, Dr. Cruz and DAVID Albrecht. Patient examined by me megan lua at the bedside. This 73 yo RH woman has two grown children. PMHX: HTN, HLD, DM, cervical CA, S/P MEGAN-BSO at age 29, chronic insomnia and intermittent headaches with menses in her youth. S/P Stroke 1 year ago at [facility]. Left with speech dysfunction. Ambulates independently without assistive devices. Describes stroke 1 year ago was with associated headache, dizziness, imbalance and difficulty with speech, requiring outpatient PT. Since the stroke, she notes ongoing left hemicranial headaches, now daily headaches w photophobia, phonophobia, kinesiophobia, "dizziness." Daily headaches over past 3 months despite increasing daily tylenol/Advil. This are unlike "normal" headaches prior to MEGAN-BSO. Chronic insonmia with "cramping" in the left hand and forearm that awakens her during sleep. Requires zolpidem but still doesn't sleep. 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 Denies loss of consciousness and heard her yell for help. MEW incontinence of urine at home and since admission. Had headache, nausea, vomiting in ER. Pt. had Headache this AM PRIOR to fall. NOW denies headache, nausea. Head CT in ED (reviewed): Moderate volume loss with ex vacuo left ventricular dilation. Mild periventricular chornic ischemic changes. Chronic encephalomalacia in left frontoparietal junction. Large hematoma of scalp over R frontal bone. 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 EKG NSR. BP on admission 161/91. CK= 205 U/A C&S pending. WBC=13.4K ILEANA: Cor reg. No bruit. Neck supple. Large hematoma over R congregation and eye lid. Right orbital edema. Abrasion to R knee. Incontinent of urine. NEURO: Awake, alert, responsive. Non-fluent aphasia. Follows all commands. CNII-CNXII: EOM's full without nystagmus. Full bragg. No facial. Gag ok. Motor: Mild right upward drift. Strength grasps and ankle DF. Decreased TIMOTEO R > L. Reflexes normal. Toes downgoing. Coordination: Mild R dysmetria. No L FTN dystaxia/dysmmetria. Sensation: Feels vibration in all fours. Romberg +/- Gait: Flexed, variable, unsteady. 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 Worsened by Toxic Metabolic Encephalopathy (? UTI) Restless Limbs Syndrome (RLS) may prove to be the etiology of her chronic insomnia and nocturnal pain and cramps. Suggest: Empiric antibiotics while awaiting urine studies and ID consult Orthostatic BPs Carotid duplex D/C short acting analgesics. Begin Depakote ER 250 qhs x 2 days then 500 mg for headache prophylaxis. Check ESR, CRP PT for eval and gait training. Neuro f/u as out patient for RX of migraine and RLS Thank you very much, Alfredo Burks MD
[2018-10-22 02:34] LABS: EPI CELLS 2.3 /HPF (0-5/HPF); HYALINE CASTS 0 /lpf (0-8); PH,URINE 7.5 (5.0-8.0); URINE APPEARANCE CLEAR; URINE BACTERIA 2978.2 /hpf (NEGATIVE); URINE BILIRUBIN NEGATIVE (NEGATIVE); URINE COLOR YELLOW; URINE GLUCOSE (UA) 3+ (NEGATIVE); URINE KETONE TRACE (NEGATIVE); URINE LEUK ESTERASE 1+ (NEGATIVE); URINE NITRITE NEGATIVE (NEGATIVE); URINE PROTEIN NEGATIVE (NEGATIVE); URINE RBC 1 /hpf (0-4); URINE UROBILINOGEN 0.2 mg/dL (0.2-1.0); URINE WBC 17 /hpf (0-5)
[2018-10-22 07:46] LABS: ALBUMIN 3.7 g/dl (3.4-5.0); BILIRUBIN,TOTAL 0.8 mg/dL (0.2-1); BLOOD UREA NITROGEN 15.5 mg/dL (7-18); CALCIUM 9.5 mg/dL (8.5-10.1); POTASSIUM 3.6 mmol/L (3.5-5.1); TOT PROT 7.2 g/dl (6.4-8.2)
[2018-10-22 07:47] LABS: BASO % 0.7 % (0-2.0); HEMATOCRIT 35.3 % (32.4-45.2); HEMOGLOBIN 12.2 GM/dL (10.7-15.3); MCH 29.8 pg (25.7-33.7); MCHC 34.6 g/dl (32.0-36.0); MEAN CELL VOLUME 86.2 fl (80-96); MEAN PLT VOLUME 8.1 fl (7.5-11.1); MONO % 6.7 % (3.8-10.2); NEUT % 66.6 % (42.8-82.8); PLATELET COUNT 244 K/MM3 (134-434); RBC 4.09 M/mm3 (3.60-5.2); RDW 13.3 % (11.6-15.6); WHITE BLOOD COUNT 10.4 K/mm3 (4.0-10.0)
[2018-10-22] MEDS ORDERED: amLODIPine BESYLATE 10 MG TABLET (FP) PO ONE (14:00)
--- NOTE | 2018-10-22 16:34 | PN ---
Progress Note, Physician - Current Medication List Current Medications: Active Medications Divalproex Sodium (Depakote *Er* -) 250 mg PO HS ELOISE - Objective Vital Signs: Vital Signs Temperature 98.4 F 10/22/18 13:28 Pulse Rate 107 H 10/22/18 13:28 Respiratory Rate 18 10/22/18 13:28 Blood Pressure 163/96 10/22/18 13:28 O2 Sat by Pulse Oximetry (%) 97 10/22/18 09:00 Constitutional: Yes: No Distress HENT: Yes: Other (R forehead hematoma little better) Neck: Yes: Supple Cardiovascular: Yes: Regular Rate and Rhythm Respiratory: Yes: CTA Bilaterally Gastrointestinal: Yes: Normal Bowel Sounds Extremities: Yes: WNL Edema: No Peripheral Pulses WNL: Yes Neurological: Yes: Alert, Oriented Labs: CBC, BMP 10/22/18 06:15 10/22/18 06:15 INR, PTT INR 0.96 (0.83-1.09) 10/21/18 10:45 Problem List - Problems (1) Fall from bed Assessment/Plan: PT eval neuro consult Code(s): W06.XXXA - FALL FROM BED, INITIAL ENCOUNTER Qualifiers: Encounter type: initial encounter Qualified Code(s): W06.XXXA - Fall from bed, initial encounter (2) Scalp hematoma Code(s): S00.03XA - CONTUSION OF SCALP, INITIAL ENCOUNTER Qualifiers: Encounter type: initial encounter Qualified Code(s): S00.03XA - Contusion of scalp, initial encounter (3) UTI (urinary tract infection) Assessment/Plan: on po abx cxs pending Code(s): N39.0 - URINARY TRACT INFECTION, SITE NOT SPECIFIED
[2018-10-22] MEDS ORDERED: PATIENT'S OWN MEDICATION (NON-FORMULARY) (Valsartan/Hydrochlorothiazide [Valsartan-Hctz 16 PO SCH (18:00)
[2018-10-22] MEDS: CARVEDILOL 25 MG TABLET (FP) PO SCH (18:38)
[2018-10-22] MEDS: ATORVASTATIN CA 40 MG TABLET (FP) PO SCH (21:40)
[2018-10-22] MEDS: MIRTAZAPINE 15 MG TABLET (FP) PO SCH (21:40)
[2018-10-22] MEDS: DIVALPROEX NA *ER* EXTEND REL 250 MG TABLET.SA PO SCH (21:40)
[2018-10-23] MEDS: metFORMIN HCL 500 MG TABLET (FP) PO SCH ×2 (06:17→16:55)
[2018-10-23] MEDS ORDERED: PT OWN MED DRAWER 7, Y5N ONE (09:24)
[2018-10-23] MEDS: CARVEDILOL 25 MG TABLET (FP) PO SCH (09:46)
[2018-10-23] MEDS: amLODIPine BESYLATE 10 MG TABLET (FP) PO SCH (09:46)
[2018-10-23] MEDS: AMOX TR/POT CLAV 875MG/125MG TABLETS (FP) PO SCH ×2 (09:46→17:38)
[2018-10-23] MEDS: HYDROCHLOROTHIAZIDE 12.5 MG CAPSULE (FP) PO SCH (09:46)
[2018-10-23] MEDS: ESCITALOPRAM OXALATE 10 MG TABLET (FP) PO SCH (09:46)
[2018-10-23] MEDS: VALSARTAN 160 MG TABLET (UD) PO SCH (09:46)
[2018-10-23] MEDS ORDERED: INSULIN (NOVOLOG) ASPART 100 UNITS/ML 10ML VIAL SQ ONE (12:45)
--- NOTE | 2018-10-23 14:34 | PN ---
Progress Note, Physician - Current Medication List Current Medications: Active Medications Amlodipine Besylate (Norvasc -) 10 mg PO DAILY [facility] Last Admin: 10/23/18 09:46 Dose: 10 mg Amoxicillin/Clavulanate Potassium (Augmentin - 875mg Tablet) 1 tab PO BID@0800, 1730 [facility] Last Admin: 10/23/18 09:46 Dose: 1 tab Atorvastatin Calcium (Lipitor -) 40 mg PO HS [facility] Last Admin: 10/22/18 21:40 Dose: 40 mg Carvedilol (Coreg -) 25 mg PO DAILY [facility] Last Admin: 10/23/18 09:46 Dose: 25 mg Divalproex Sodium (Depakote *Er* -) 250 mg PO HS [facility] Last Admin: 10/22/18 21:40 Dose: 250 mg Escitalopram Oxalate (Lexapro -) 10 mg PO DAILY [facility] Last Admin: 10/23/18 09:46 Dose: 10 mg Hydrochlorothiazide (Hctz -) 12.5 mg PO DAILY [facility] Last Admin: 10/23/18 09:46 Dose: 12.5 mg Metformin HCl (Glucophage -) 1,000 mg PO BIDI [facility] Last Admin: 10/23/18 06:17 Dose: 1,000 mg Mirtazapine (Remeron -) 15 mg PO HS [facility] Last Admin: 10/22/18 21:40 Dose: 15 mg Sitagliptin Phosphate (Januvia -) 100 mg PO AM [facility] Last Admin: 10/23/18 06:17 Dose: 100 mg Valsartan (Diovan -) 160 mg PO DAILY [facility] Last Admin: 10/23/18 09:46 Dose: 160 mg - Objective Vital Signs: Vital Signs Temperature 98.1 F 10/23/18 09:40 Pulse Rate 84 10/23/18 09:40 Respiratory Rate 18 10/23/18 09:40 Blood Pressure 139/58 L 10/23/18 09:40 O2 Sat by Pulse Oximetry (%) 97 10/23/18 01:00 Constitutional: Yes: No Distress HENT: Yes: Other (R frontal hematoma , bruise around eyes) Neck: Yes: Supple Cardiovascular: Yes: Regular Rate and Rhythm Respiratory: Yes: CTA Bilaterally Gastrointestinal: Yes: Normal Bowel Sounds Extremities: Yes: WNL Neurological: Yes: Alert, Oriented Labs: CBC, BMP 10/22/18 06:15 10/22/18 06:15 INR, PTT INR 0.96 (0.83-1.09) 10/21/18 10:45 Problem List - Problems (1) Fall from bed Assessment/Plan: PT eval neuro consult Code(s): W06.XXXA - FALL FROM BED, INITIAL ENCOUNTER Qualifiers: Encounter type: initial encounter Qualified Code(s): W06.XXXA - Fall from bed, initial encounter (2) Scalp hematoma Assessment/Plan: improving Code(s): S00.03XA - CONTUSION OF SCALP, INITIAL ENCOUNTER Qualifiers: Encounter type: initial encounter Qualified Code(s): S00.03XA - Contusion of scalp, initial encounter (3) UTI (urinary tract infection) Assessment/Plan: on po abx cxs pending Code(s): N39.0 - URINARY TRACT INFECTION, SITE NOT SPECIFIED
[2018-10-23] MEDS: POLYETHYLENE GLYCOL 3350 119 GM BTL PO SCH ×2 (15:29→21:54)
[2018-10-23 16:12] LABS: BASO % 0.3 % (0-2.0); EOS % 0.6 % (0-4.5); HEMATOCRIT 34.1 % (32.4-45.2); HEMOGLOBIN 11.7 GM/dL (10.7-15.3); LYMPH % 15.5 % (8-40); MCHC 34.3 g/dl (32.0-36.0); MEAN CELL VOLUME 87.3 fl (80-96); MONO % 4.9 % (3.8-10.2); NEUT % 78.7 % (42.8-82.8); PLATELET COUNT 244 K/MM3 (134-434); RDW 12.9 % (11.6-15.6)
[2018-10-23 16:41] LABS: ALBUMIN 3.6 g/dl (3.4-5.0); BILIRUBIN,TOTAL 0.7 mg/dL (0.2-1); BLOOD UREA NITROGEN 37.6 mg/dL (7-18); CALCIUM 9.3 mg/dL (8.5-10.1); CREATININE 1.7 mg/dL (0.55-1.3); POTASSIUM 3.9 mmol/L (3.5-5.1); TOT PROT 6.9 g/dl (6.4-8.2)
[2018-10-23] MEDS: INSULIN SLIDING SCALE (NOVOLOG) 1 VIAL SQ SCH ×2 (16:55→21:54)
[2018-10-23 17:16] LABS: PH,URINE 5.5 (5.0-8.0); URINE APPEARANCE CLOUDY; URINE BILIRUBIN NEGATIVE (NEGATIVE); URINE COLOR YELLOW; URINE GLUCOSE (UA) 3+ (NEGATIVE); URINE KETONE TRACE (NEGATIVE); URINE LEUK ESTERASE 1+ (NEGATIVE); URINE NITRITE NEGATIVE (NEGATIVE); URINE PROTEIN TRACE (NEGATIVE); URINE UROBILINOGEN 0.2 mg/dL (0.2-1.0)
[2018-10-23 20:48] LABS: EPI CELLS 1.3 /HPF (0-5/HPF); URINE BACTERIA 11.3 /hpf (NEGATIVE); URINE RBC 3.5 /hpf (0-4); URINE WBC 135 /hpf (0-5)
[2018-10-23] MEDS: SODIUM CHLORIDE 1,000 ML IV SCH (21:53)
[2018-10-23] MEDS: ATORVASTATIN CA 40 MG TABLET (FP) PO SCH (21:54)
[2018-10-23] MEDS: DIVALPROEX NA *ER* EXTEND REL 250 MG TABLET.SA PO SCH (21:54)
[2018-10-23] MEDS: MIRTAZAPINE 15 MG TABLET (FP) PO SCH (21:55)
[2018-10-24] MEDS: metFORMIN HCL 500 MG TABLET (FP) PO SCH ×2 (06:55→17:04)
[2018-10-24] MEDS: INSULIN SLIDING SCALE (NOVOLOG) 1 VIAL SQ SCH ×4 (06:56→21:28)
[2018-10-24] MEDS: AMOX TR/POT CLAV 875MG/125MG TABLETS (FP) PO SCH ×2 (08:57→17:04)
[2018-10-24] MEDS: ESCITALOPRAM OXALATE 10 MG TABLET (FP) PO SCH (09:00)
[2018-10-24] MEDS: amLODIPine BESYLATE 10 MG TABLET (FP) PO SCH (09:00)
[2018-10-24] MEDS: VALSARTAN 160 MG TABLET (UD) PO SCH (09:00)
[2018-10-24] MEDS: CARVEDILOL 25 MG TABLET (FP) PO SCH (09:00)
[2018-10-24] MEDS: HYDROCHLOROTHIAZIDE 12.5 MG CAPSULE (FP) PO SCH (09:01)
[2018-10-24] MEDS: POLYETHYLENE GLYCOL 3350 119 GM BTL PO SCH ×2 (11:56→21:29)
[2018-10-24] MEDS ORDERED: PT OWN MED DRAWER 7, Y5N ONE (21:19)
[2018-10-24] MEDS: ATORVASTATIN CA 40 MG TABLET (FP) PO SCH (21:29)
[2018-10-24] MEDS: DIVALPROEX NA *ER* EXTEND REL 250 MG TABLET.SA PO SCH (21:29)
[2018-10-24] MEDS: SODIUM CHLORIDE 1,000 ML IV SCH (21:29)
[2018-10-24] MEDS: MIRTAZAPINE 15 MG TABLET (FP) PO SCH (21:29)
--- NOTE | 2018-10-24 23:04 | PN ---
Progress Note, Physician - Current Medication List Current Medications: Active Medications Acetaminophen (Tylenol -) 650 mg PO Q4H PRN PRN Reason: PAIN LEVEL 1 - 7 Amlodipine Besylate (Norvasc -) 10 mg PO DAILY [facility] Last Admin: 10/24/18 09:00 Dose: 10 mg Amoxicillin/Clavulanate Potassium (Augmentin - 875mg Tablet) 1 tab PO BID@0800, 1730 [facility] Last Admin: 10/24/18 17:04 Dose: 1 tab Atorvastatin Calcium (Lipitor -) 40 mg PO HS [facility] Last Admin: 10/24/18 21:29 Dose: 40 mg Carvedilol (Coreg -) 25 mg PO DAILY [facility] Last Admin: 10/24/18 09:00 Dose: 25 mg Divalproex Sodium (Depakote *Er* -) 250 mg PO HS [facility] Last Admin: 10/24/18 21:29 Dose: 250 mg Escitalopram Oxalate (Lexapro -) 10 mg PO DAILY [facility] Last Admin: 10/24/18 09:00 Dose: 10 mg Hydrochlorothiazide (Hctz -) 12.5 mg PO DAILY [facility] Last Admin: 10/24/18 09:01 Dose: 12.5 mg Sodium Chloride (Normal Saline -) 1,000 mls @ 75 mls/hr IV ASDIR [facility] Last Admin: 10/24/18 21:29 Dose: 75 mls/hr Insulin Aspart (Novolog Vial Sliding Scale -) 1 vial SQ ACHS [facility]; Protocol Last Admin: 10/24/18 21:28 Dose: 4 units Metformin HCl (Glucophage -) 1,000 mg PO BIDI [facility] Last Admin: 10/24/18 17:04 Dose: 1,000 mg Mirtazapine (Remeron -) 15 mg PO HS [facility] Last Admin: 10/24/18 21:29 Dose: 15 mg Polyethylene Glycol (Miralax (For Daily Use) -) 17 gm PO BID [facility] Last Admin: 10/24/18 21:29 Dose: Not Given Sitagliptin Phosphate (Januvia -) 100 mg PO AM [facility] Last Admin: 10/24/18 06:55 Dose: 100 mg Valsartan (Diovan -) 160 mg PO DAILY [facility] Last Admin: 10/24/18 09:00 Dose: 160 mg - Objective Vital Signs: Vital Signs Temperature 98.7 F 10/24/18 23:00 Pulse Rate 94 H 10/24/18 23:00 Respiratory Rate 20 10/24/18 23:00 Blood Pressure 141/77 10/24/18 23:00 O2 Sat by Pulse Oximetry (%) 98 10/24/18 21:00 Labs: CBC, BMP 10/23/18 15:30 10/23/18 15:30 INR, PTT INR 0.96 (0.83-1.09) 10/21/18 10:45
[2018-10-25] MEDS: metFORMIN HCL 500 MG TABLET (FP) PO SCH ×2 (06:08→17:10)
[2018-10-25] MEDS: INSULIN SLIDING SCALE (NOVOLOG) 1 VIAL SQ SCH ×4 (06:08→21:28)
[2018-10-25] MEDS: AMOX TR/POT CLAV 875MG/125MG TABLETS (FP) PO SCH ×2 (08:44→17:10)
[2018-10-25] MEDS: VALSARTAN 160 MG TABLET (UD) PO SCH (09:00)
[2018-10-25] MEDS: ESCITALOPRAM OXALATE 10 MG TABLET (FP) PO SCH (09:00)
[2018-10-25] MEDS: amLODIPine BESYLATE 10 MG TABLET (FP) PO SCH (09:00)
[2018-10-25] MEDS: HYDROCHLOROTHIAZIDE 12.5 MG CAPSULE (FP) PO SCH (09:00)
[2018-10-25] MEDS: CARVEDILOL 25 MG TABLET (FP) PO SCH (09:00)
[2018-10-25] MEDS: POLYETHYLENE GLYCOL 3350 119 GM BTL PO SCH ×2 (09:03→21:29)
[2018-10-25] MEDS: ACETAMINOPHEN 325 MG TABLET (FP) PO PRN (09:36)
[2018-10-25 13:17] VITALS: BMI 29.5
[2018-10-25] MEDS: SODIUM CHLORIDE 1,000 ML IV SCH (19:52)
[2018-10-25] MEDS ORDERED: PT OWN MED DRAWER 7, Y5N ONE (21:22)
[2018-10-25] MEDS: ATORVASTATIN CA 40 MG TABLET (FP) PO SCH (21:26)
[2018-10-25] MEDS: DIVALPROEX NA *ER* EXTEND REL 250 MG TABLET.SA PO SCH (21:27)
[2018-10-25] MEDS: MIRTAZAPINE 15 MG TABLET (FP) PO SCH (21:27)
--- NOTE | 2018-10-25 23:16 | PN ---
Progress Note, Physician - Current Medication List Current Medications: Active Medications Acetaminophen (Tylenol -) 650 mg PO Q4H PRN PRN Reason: PAIN LEVEL 1 - 7 Last Admin: 10/25/18 09:36 Dose: 650 mg Amlodipine Besylate (Norvasc -) 10 mg PO DAILY [facility] Last Admin: 10/25/18 09:00 Dose: 10 mg Amoxicillin/Clavulanate Potassium (Augmentin - 875mg Tablet) 1 tab PO BID@0800, 1730 [facility] Last Admin: 10/25/18 17:10 Dose: 1 tab Atorvastatin Calcium (Lipitor -) 40 mg PO HS [facility] Last Admin: 10/25/18 21:26 Dose: 40 mg Carvedilol (Coreg -) 25 mg PO DAILY [facility] Last Admin: 10/25/18 09:00 Dose: 25 mg Divalproex Sodium (Depakote *Er* -) 250 mg PO [facility] Last Admin: 10/25/18 21:27 Dose: 250 mg Escitalopram Oxalate (Lexapro -) 10 mg PO DAILY [facility] Last Admin: 10/25/18 09:00 Dose: 10 mg Hydrochlorothiazide (Hctz -) 12.5 mg PO DAILY [facility] Last Admin: 10/25/18 09:00 Dose: 12.5 mg Insulin Aspart (Novolog Vial Sliding Scale -) [address] [facility]; Protocol Last Admin: 10/25/18 21:28 Dose: 4 units Metformin HCl (Glucophage -) 1,000 mg PO BIDI [facility] Last Admin: 10/25/18 17:10 Dose: 1,000 mg Mirtazapine (Remeron -) 15 mg PO HS [facility] Last Admin: 10/25/18 21:27 Dose: 15 mg Polyethylene Glycol (Miralax (For Daily Use) -) 17 gm PO BID [facility] Last Admin: 10/25/18 21:29 Dose: Not Given Sitagliptin Phosphate (Januvia -) 100 mg PO AM [facility] Last Admin: 10/25/18 06:08 Dose: 100 mg Valsartan (Diovan -) 160 mg PO DAILY [facility] Last Admin: 10/25/18 09:00 Dose: 160 mg - Objective Vital Signs: Vital Signs Temperature 98.1 F 10/25/18 22:00 Pulse Rate 97 H 10/25/18 08:49 Respiratory Rate 20 10/25/18 22:00 Blood Pressure 138/82 10/25/18 22:00 O2 Sat by Pulse Oximetry (%) 97 10/25/18 21:00 Labs: CBC, BMP 10/23/18 15:30 10/23/18 15:30 INR, PTT INR 0.96 (0.83-1.09) 10/21/18 10:45
[2018-10-26] MEDS: INSULIN SLIDING SCALE (NOVOLOG) 1 VIAL SQ SCH ×4 (06:10→21:36)
[2018-10-26] MEDS: metFORMIN HCL 500 MG TABLET (FP) PO SCH ×2 (06:10→17:10)
[2018-10-26] MEDS: ACETAMINOPHEN 325 MG TABLET (FP) PO PRN ×3 (06:47→21:34)
[2018-10-26] MEDS: CARVEDILOL 25 MG TABLET (FP) PO SCH (09:17)
[2018-10-26] MEDS: amLODIPine BESYLATE 10 MG TABLET (FP) PO SCH (09:17)
[2018-10-26] MEDS: VALSARTAN 160 MG TABLET (UD) PO SCH (09:18)
[2018-10-26] MEDS: AMOX TR/POT CLAV 875MG/125MG TABLETS (FP) PO SCH ×2 (09:18→17:11)
[2018-10-26] MEDS: POLYETHYLENE GLYCOL 3350 119 GM BTL PO SCH ×2 (09:18→21:35)
[2018-10-26] MEDS: ESCITALOPRAM OXALATE 10 MG TABLET (FP) PO SCH (09:18)
[2018-10-26] MEDS: HYDROCHLOROTHIAZIDE 12.5 MG CAPSULE (FP) PO SCH (09:18)
[2018-10-26 11:03] LABS: BASO % 0.6 % (0-2.0); EOS % 3.7 % (0-4.5); HEMATOCRIT 31.1 % (32.4-45.2); HEMOGLOBIN 10.7 GM/dL (10.7-15.3); LYMPH % 32.8 % (8-40); MCHC 34.4 g/dl (32.0-36.0); MEAN PLT VOLUME 7.3 fl (7.5-11.1); MONO % 6.9 % (3.8-10.2); PLATELET COUNT 220 K/MM3 (134-434); RBC 3.58 M/mm3 (3.60-5.2); RDW 13.2 % (11.6-15.6); WHITE BLOOD COUNT 7.5 K/mm3 (4.0-10.0)
[2018-10-26] MEDS ORDERED: INSULIN (NOVOLOG) ASPART 100 UNITS/ML 10ML VIAL ONE (11:54)
[2018-10-26 12:26] LABS: ALBUMIN 3.1 g/dl (3.4-5.0); BILIRUBIN,TOTAL 0.6 mg/dL (0.2-1); BLOOD UREA NITROGEN 16.3 mg/dL (7-18); CALCIUM 9.5 mg/dL (8.5-10.1); CREATININE 1.2 mg/dL (0.55-1.3); POTASSIUM 3.4 mmol/L (3.5-5.1); TOT PROT 6.2 g/dl (6.4-8.2)
--- NOTE | 2018-10-26 16:37 | PN ---
Progress Note, Physician - Current Medication List Current Medications: Active Medications Acetaminophen (Tylenol -) 650 mg PO Q4H PRN PRN Reason: PAIN LEVEL 1 - 7 Last Admin: 10/26/18 13:35 Dose: 650 mg Amlodipine Besylate (Norvasc -) 10 mg PO DAILY [facility] Last Admin: 10/26/18 09:17 Dose: 10 mg Amoxicillin/Clavulanate Potassium (Augmentin - 875mg Tablet) 1 tab PO BID@0800, 1730 [facility] Last Admin: 10/26/18 09:18 Dose: 1 tab Atorvastatin Calcium (Lipitor -) 40 mg PO HS [facility] Last Admin: 10/25/18 21:26 Dose: 40 mg Carvedilol (Coreg -) 25 mg PO DAILY [facility] Last Admin: 10/26/18 09:17 Dose: 25 mg Divalproex Sodium (Depakote *Er* -) 250 mg PO [facility] Last Admin: 10/25/18 21:27 Dose: 250 mg Escitalopram Oxalate (Lexapro -) 10 mg PO DAILY [facility] Last Admin: 10/26/18 09:18 Dose: 10 mg Hydrochlorothiazide (Hctz -) 12.5 mg PO DAILY [facility] Last Admin: 10/26/18 09:18 Dose: 12.5 mg Insulin Aspart (Novolog Vial Sliding Scale -) 1 vial SQ [facility]; Protocol Last Admin: 10/26/18 11:58 Dose: 4 units Metformin HCl (Glucophage -) 1,000 mg PO BIDI [facility] Last Admin: 10/26/18 06:10 Dose: 1,000 mg Mirtazapine (Remeron -) 15 mg PO HS [facility] Last Admin: 10/25/18 21:27 Dose: 15 mg Polyethylene Glycol (Miralax (For Daily Use) -) 17 gm PO BID [facility] Last Admin: 10/26/18 09:18 Dose: Not Given Sitagliptin Phosphate (Januvia -) 100 mg PO AM [facility] Last Admin: 10/26/18 06:10 Dose: 100 mg Valsartan (Diovan -) 160 mg PO DAILY [facility] Last Admin: 10/26/18 09:18 Dose: 160 mg - Objective Vital Signs: Vital Signs Temperature 98.3 F 10/26/18 09:16 Pulse Rate 86 10/26/18 09:16 Respiratory Rate 17 10/26/18 09:16 Blood Pressure 148/76 10/26/18 09:16 O2 Sat by Pulse Oximetry (%) 95 10/26/18 09:00 Constitutional: Yes: No Distress HENT: Yes: Other (frontal hematoma resolving) Neck: Yes: Supple Cardiovascular: Yes: Regular Rate and Rhythm Respiratory: Yes: CTA Bilaterally Gastrointestinal: Yes: Normal Bowel Sounds Extremities: Yes: WNL Neurological: Yes: Alert, Oriented Labs: CBC, BMP 10/26/18 10:53 10/26/18 10:53 INR, PTT INR 0.96 (0.83-1.09) 10/21/18 10:45 Problem List - Problems (1) Fall from bed Assessment/Plan: PT eval neuro consult...done Code(s): W06.XXXA - FALL FROM BED, INITIAL ENCOUNTER Qualifiers: Encounter type: initial encounter Qualified Code(s): W06.XXXA - Fall from bed, initial encounter (2) Scalp hematoma Assessment/Plan: improving Code(s): S00.03XA - CONTUSION OF SCALP, INITIAL ENCOUNTER Qualifiers: Encounter type: initial encounter Qualified Code(s): S00.03XA - Contusion of scalp, initial encounter (3) UTI (urinary tract infection) Assessment/Plan: on po abx cxs pending..noted Code(s): N39.0 - URINARY TRACT INFECTION, SITE NOT SPECIFIED
--- NOTE | 2018-10-26 18:24 | CONSULT ---
Consult Consult Specialty:: Surgery: Referred by:: Anthony Galloway MD Reason for Consultation:: Hematoma on forehead, H/O fall. - History of Present Illness Chief Complaint: 73 yaer old woman fell from her bed about 6 days ago , and sustained swelling on her right forehead, She denies loss of consciousness, nausea, vomiting. She has been on Advil for many years. - History Source History Provided By: Patient, Family Member (.) Limitations to Obtaining History: No Limitations - Past Surgical History Past Surgical History: Yes: Oopherectomy (Oophorectomy for ? ovarian cancer many years ago.) - Alcohol/Substance Use Hx Alcohol Use: No - Smoking History Smoking history: Never smoked Have you smoked in the past 12 months: No - Social History Usual Living Arrangement: With Spouse Home Medications - Allergies Allergies/Adverse Reactions: Allergies Allergy/AdvReac Type Severity Reaction Status Date / Time No Known Allergies Allergy Verified 03/27/17 19:12 - Home Medications Home Medications: Ambulatory Orders levoFLOXacin [Levaquin -] 500 mg PO DAILY #5 tablet 03/28/17 Amlodipine Besylate 10 mg PO DAILY 10/22/18 Amox-Tr/K Cl [Augmentin 875-125mg Tablet -] 1 tab PO BID@0800,1730 #20 tablet Atorvastatin Calcium 40 mg PO DAILY 10/22/18 Carvedilol 25 mg PO DAILY 10/22/18 Escitalopram Oxalate [Lexapro -] 10 mg PO DAILY 10/22/18 Metformin HCl [Glucophage] 1,000 mg PO BID 10/22/18 Mirtazapine 15 mg PO DAILY 10/22/18 Sitagliptin Phosphate [Januvia] 100 mg PO DAILY 10/22/18 Valsartan/Hydrochlorothiazide [Valsartan-Hctz 160-12.5 mg Tab] 1 each PO DAILY 10/22/18 Zolpidem Tartrate [Zolpidem Tartrate ER] 12.5 mg PO HS 10/22/18 Review of Systems - Review of Systems Constitutional: reports: No Symptoms Eyes: reports: No Symptoms HENT: reports: No Symptoms Neck: reports: No Symptoms Cardiovascular: reports: No Symptoms Physical Exam Vital Signs: Vital Signs Temperature 98.3 F 10/26/18 09:16 Pulse Rate 86 09/16/19 09:16 Respiratory Rate 17 10/26/18 09:16 Blood Pressure 148/76 10/26/18 09:16 O2 Sat by Pulse Oximetry (%) 95 10/26/18 09:00 Constitutional: Yes: Other (Alert and oriented.) HENT: Yes: Other (Right periorbital ecchymosis . Eyeball is normal Old hematoma. Conjunctiva is normal. Right frontal hematoma about 4 cms in diameter with a small puncture in the center. No drainage . Fluctuant . ? Old hematoma , liquifying. No sign of an abscess.) Labs: CBC, BMP 10/26/18 10:53 10/26/18 10:53 Imaging - Results Cat Scan: Report Reviewed Ultrasound: Report Reviewed (scan done today : Decrease in size of frontal hematoma. No orbital fracture . No acute intracranial swelling , bleeding , hematoma. No facial or cranial fracture.) Problem List - Problems (1) H/O fall Code(s): Z91.81 - HISTORY OF FALLING (2) Traumatic hematoma of forehead Code(s): S00.83XA - CONTUSION OF OTHER PART OF HEAD, INITIAL ENCOUNTER Qualifiers: Encounter type: initial encounter Qualified Code(s): S00.83XA - Contusion of other part of head, initial encounter (3) Periorbital hematoma Code(s): H05.239 - HEMORRHAGE OF UNSPECIFIED ORBIT (4) Diabetes Code(s): E11.9 - TYPE 2 DIABETES MELLITUS WITHOUT COMPLICATIONS Assessment/Plan Improving scalp hematoma. No intracranial injury. Periorbital hematoma. giabetes mellitus.
[2018-10-26] MEDS: ATORVASTATIN CA 40 MG TABLET (FP) PO SCH (21:35)
[2018-10-26] MEDS: DIVALPROEX NA *ER* EXTEND REL 250 MG TABLET.SA PO SCH (21:35)
[2018-10-26] MEDS: MIRTAZAPINE 15 MG TABLET (FP) PO SCH (21:35)
[2018-10-26] MEDS: POTASSIUM CHLORIDE ORAL LIQUID 20 MEQ/15 ML PO SCH (23:23)
[2018-10-27] MEDS: metFORMIN HCL 500 MG TABLET (FP) PO SCH (06:11)
[2018-10-27] MEDS: INSULIN SLIDING SCALE (NOVOLOG) 1 VIAL SQ SCH ×2 (06:26→12:05)
[2018-10-27] MEDS: ACETAMINOPHEN 325 MG TABLET (FP) PO PRN ×2 (08:13→15:03)
[2018-10-27] MEDS: AMOX TR/POT CLAV 875MG/125MG TABLETS (FP) PO SCH (08:13)
--- NOTE | 2018-10-27 09:38 | PN ---
Progress Note, Physician - Current Medication List Current Medications: Active Medications Acetaminophen (Tylenol -) 650 mg PO Q4H PRN PRN Reason: PAIN LEVEL 1 - 7 Last Admin: 10/27/18 08:13 Dose: 650 mg Amlodipine Besylate (Norvasc -) 10 mg PO DAILY [facility] Last Admin: 10/26/18 09:17 Dose: 10 mg Amoxicillin/Clavulanate Potassium (Augmentin - 875mg Tablet) 1 tab PO BID@0800, 1730 [facility] Last Admin: 10/27/18 08:13 Dose: 1 tab Atorvastatin Calcium (Lipitor -) 40 mg PO HS [facility] Last Admin: 10/26/18 21:35 Dose: 40 mg Carvedilol (Coreg -) 25 mg PO DAILY [facility] Last Admin: 10/26/18 09:17 Dose: 25 mg Divalproex Sodium (Depakote *Er* -) 250 mg PO [facility] Last Admin: 10/26/18 21:35 Dose: 250 mg Escitalopram Oxalate (Lexapro -) 10 mg PO DAILY [facility] Last Admin: 10/26/18 09:18 Dose: 10 mg Hydrochlorothiazide (Hctz -) 12.5 mg PO DAILY [facility] Last Admin: 10/26/18 09:18 Dose: 12.5 mg Insulin Aspart (Novolog Vial Sliding Scale -) 1 vial SQ [facility]; Protocol Last Admin: 10/27/18 06:26 Dose: 4 units Metformin HCl (Glucophage -) 1,000 mg PO BIDI [facility] Last Admin: 10/27/18 06:11 Dose: 1,000 mg Mirtazapine (Remeron -) 15 mg PO HS [facility] Last Admin: 10/26/18 21:35 Dose: 15 mg Polyethylene Glycol (Miralax (For Daily Use) -) 17 gm PO BID [facility] Last Admin: 10/26/18 21:35 Dose: 17 grams Potassium Chloride (Potassium Chloride Oral Liquid) 40 meq PO BID [facility] Last Admin: 10/26/18 23:23 Dose: 40 meq Sitagliptin Phosphate (Januvia -) 100 mg PO AM [facility] Last Admin: 10/27/18 06:11 Dose: 100 mg Valsartan (Diovan -) 160 mg PO DAILY [facility] Last Admin: 10/26/18 09:18 Dose: 160 mg - Objective Vital Signs: Vital Signs Temperature 98.1 F 10/26/18 22:00 Pulse Rate 81 10/26/18 22:00 Respiratory Rate 18 10/26/18 22:00 Blood Pressure 138/67 10/26/18 22:00 O2 Sat by Pulse Oximetry (%) 96 10/26/18 22:00 Labs: CBC, BMP 10/26/18 10:53 10/26/18 10:53 INR, PTT INR 0.96 (0.83-1.09) 10/21/18 10:45 Problem List - Problems (1) H/O fall Code(s): Z91.81 - HISTORY OF FALLING (2) Traumatic hematoma of forehead Code(s): S00.83XA - CONTUSION OF OTHER PART OF HEAD, INITIAL ENCOUNTER Qualifiers: Encounter type: initial encounter Qualified Code(s): S00.83XA - Contusion of other part of head, initial encounter (3) Periorbital hematoma Code(s): H05.239 - HEMORRHAGE OF UNSPECIFIED ORBIT (4) Diabetes Code(s): E11.9 - TYPE 2 DIABETES MELLITUS WITHOUT COMPLICATIONS Assessment/Plan Surgery : patient is alert and oriented. No c/o haedaches. hematoma slowly resolving. She can be discharged home. Can be followed in my office. Instructions given.
[2018-10-27] MEDS: VALSARTAN 160 MG TABLET (UD) PO SCH (10:00)
[2018-10-27] MEDS: CARVEDILOL 25 MG TABLET (FP) PO SCH (10:00)
[2018-10-27] MEDS: amLODIPine BESYLATE 10 MG TABLET (FP) PO SCH (10:00)
[2018-10-27] MEDS: POTASSIUM CHLORIDE ORAL LIQUID 20 MEQ/15 ML PO SCH (10:00)
[2018-10-27] MEDS: HYDROCHLOROTHIAZIDE 12.5 MG CAPSULE (FP) PO SCH (10:05)
[2018-10-27] MEDS: ESCITALOPRAM OXALATE 10 MG TABLET (FP) PO SCH (10:10)
[2018-10-27] MEDS: POLYETHYLENE GLYCOL 3350 119 GM BTL PO SCH (10:15)
[2018-10-27] MEDS ORDERED: INSULIN (NOVOLOG) ASPART 100 UNITS/ML 10ML VIAL ONE (11:56)
[2018-10-27 14:45] VITALS: BP 113/80; PULSE 82; TEMP 98
--- NOTE | 2018-10-27 17:30 | DS ---
Physical Examination Vital Signs: Vital Signs Temperature 98 F 10/27/18 09:00 Pulse Rate 82 10/27/18 09:00 Respiratory Rate 20 10/27/18 09:00 Blood Pressure 113/80 10/27/18 09:00 O2 Sat by Pulse Oximetry (%) 96 10/26/18 22:00 HENT: Yes: Other (resolving hematoma of fore head) Cardiovascular: Yes: Regular Rate and Rhythm Respiratory: Yes: CTA Bilaterally Gastrointestinal: Yes: Normal Bowel Sounds Extremities: Yes: WNL Edema: No Peripheral Pulses WNL: Yes Neurological: Yes: Alert, Oriented Labs: CBC, BMP 10/26/18 10:53 10/26/18 10:53 Discharge Summary Reason For Visit: CONCUSSION,HEMATOMA OF SCALP Condition: Stable - Instructions Diet, Activity, Other Instructions: see your pmd in 2-3 days check cbc , cmp Referrals: Alfredo Burks MD [Staff Physician] - Disposition: HOME - Home Medications Comprehensive Discharge Medication List: Ambulatory Orders Amlodipine Besylate 10 mg PO DAILY 10/22/18 Amox-Tr/K Cl [Augmentin 875-125mg Tablet -] 1 tab PO BID@0800,1730 #20 tablet Atorvastatin Calcium 40 mg PO DAILY 10/22/18 Carvedilol 25 mg PO DAILY 10/22/18 Escitalopram Oxalate [Lexapro -] 10 mg PO DAILY 10/22/18 Metformin HCl [Glucophage] 1,000 mg PO BID 10/22/18 Mirtazapine 15 mg PO DAILY 10/22/18 Sitagliptin Phosphate [Januvia] 100 mg PO DAILY 10/22/18 Valsartan/Hydrochlorothiazide [Valsartan-Hctz 160-12.5 mg Tab] 1 each PO DAILY 10/22/18 Zolpidem Tartrate [Zolpidem Tartrate ER] 12.5 mg PO HS 10/22/18 follow up pmd 2-3 days
== END 2018-10-27 16:04 | disposition home or self-care (01) | DRG 604 ==
LOC: JER 09:54 → JERBED 13:51 → J6S 15:38
PROVIDERS: ADMIT Internal Medicine; ATTEND Internal Medicine
DX: S00.03XA Contusion of scalp, initial encounter (principal); G93.41 Metabolic encephalopathy; R44.3 Hallucinations, unspecified; N39.0 Urinary tract infection, site not specified; S05.11XA Contusion of eyeball and orbital tissues, right eye, initial encounter; S00.83XA Contusion of other part of head, initial encounter; E78.5 Hyperlipidemia, unspecified; I10 Essential (primary) hypertension; E11.9 Type 2 diabetes mellitus without complications; F32.9 Major depressive disorder, single episode, unspecified; G47.00 Insomnia, unspecified; W06.XXXA Fall from bed, initial encounter; Y92.092 Bedroom in other non-institutional residence as the place of occurrence of the external cause; Z86.73 Personal history of transient ischemic attack (TIA), and cerebral infarction without residual deficits; R41.82 Altered mental status, unspecified; G44.40 Drug-induced headache, not elsewhere classified, not intractable; G25.81 Restless legs syndrome
CPT/HCPCS: 36415; 70450-TC; 70486-TC; 71045-TC-FY; 72125-TC; 80053; 81003; 82550; 82553; 82962; 84484; 85025; 85610; 85651; 86140; 87086; 93005; 93010; 93880-TC; 97116-GP; 97161-GP; 99283-25; J0131; J7030